=== PATIENT | male | born 1935 | race Caucasian/White ===

== ENCOUNTER 2022-09-02 15:17 | Inpatient (IN) | payer OTHER, BC ==
[2022-09-02 16:39] LABS: VENOUS BASE EXCESS -15.1 mmol/L (-2-2); VENOUS O2 SATURATION 20.2 % (70-80); VENOUS PCO2 50.7 mmHg (38-52)
[2022-09-02 16:40] LABS: VENOUS PH 7.086 (7.310-7.410)
[2022-09-02 16:45] LABS: BASO % 0.5 % (0-2.0); EOS % 3.3 % (0-4.5); HEMATOCRIT 43.6 % (35.4-49); HEMOGLOBIN 14.3 GM/dL (11.7-16.9); LYMPH % 16.8 % (8-40); MCH 31.6 pg (25.7-33.7); MCHC 32.8 g/dl (32.0-35.9); MEAN CELL VOLUME 96.3 fl (80-96); MONO % 17.8 % (3.8-10.2); NEUT % 61.6 % (42.8-82.8); PLATELET COUNT 203 10^3/uL (134-434); RBC 4.53 M/mm3 (4.00-5.60); RDW 14.2 % (11.9-15.9); WHITE BLOOD COUNT 7.9 K/mm3 (4.0-10.0)
[2022-09-02 16:55] LABS: INR 1.08 (0.83-1.09); PROTHROMBIN TIME (PATIENT) 12.5 SEC (9.7-13.0)
[2022-09-02 17:06] LABS: CALCIUM 8.9 mg/dL (8.5-10.1)
[2022-09-02 17:07] LABS: BLOOD UREA NITROGEN 90.8 mg/dL (7-18)
[2022-09-02 17:10] LABS: CREATININE 4.6 mg/dL (0.55-1.3)
[2022-09-02 17:12] LABS: BILIRUBIN,TOTAL 0.5 mg/dL (0.2-1); TOT PROT 7.2 g/dl (6.4-8.2)
[2022-09-02] MEDS ORDERED: SODIUM CHLORIDE 0.9% 500 ML INFUS.BAG IV ONE ×2 (17:21→18:21)
[2022-09-02 17:51] LABS: ANISOCYTOSIS 0; MACROCYTOSIS 0
[2022-09-02] MEDS ORDERED: LACTATED RINGERS SOLUTION 1,000 ML/1,000 ML INFUS.BAG IV SCH (18:15)
[2022-09-02] MEDS ORDERED: PIPERACILLIN/TAZOB 4.5 GM 4.5 GM in DEXTROSE 5%-WATER 100 ML IVPB ONE (18:50)
[2022-09-02] MEDS ORDERED: CEFEPIME HCL/D5W 2 GM/50 ML BAG IVPB ONE (18:55)
[2022-09-02] MEDS ORDERED: PIPERACILLIN/TAZOB 4.5 GM 4.5 GM/100 ML BAG IVPB ONE (19:09)
[2022-09-02] MEDS ORDERED: CEFEPIME 2 GM/200 ML BAG IVPB ONE (20:24)
[2022-09-02 20:34] LABS: CALCIUM 7.8 mg/dL (8.5-10.1)
[2022-09-02 20:35] LABS: BLOOD UREA NITROGEN 85.8 mg/dL (7-18)
[2022-09-02 20:38] LABS: CREATININE 4.1 mg/dL (0.55-1.3)
[2022-09-02 20:54] LABS: VENOUS BASE EXCESS -16.4 mmol/L (-2-2); VENOUS O2 SATURATION 36.7 % (70-80)
[2022-09-02 20:55] LABS: VENOUS PH 7.133 (7.310-7.410)
[2022-09-02 21:04] LABS: URINE APPEARANCE CLEAR; URINE BILIRUBIN NEGATIVE (NEGATIVE); URINE COLOR YELLOW; URINE GLUCOSE (UA) 1+ (NEGATIVE); URINE KETONE NEGATIVE (NEGATIVE); URINE LEUK ESTERASE NEGATIVE (NEGATIVE); URINE NITRITE NEGATIVE (NEGATIVE); URINE PROTEIN TRACE (NEGATIVE); URINE UROBILINOGEN 0.2 mg/dL (0.2-1.0)
[2022-09-02] MEDS ORDERED: LIDOCAINE HCL 2% JELLY 6 ML TP ONE (21:40)
[2022-09-03] MEDS ORDERED: MELATONIN 5 MG TABLETS PO PRN (00:26)
[2022-09-03] MEDS: SODIUM CHLORIDE 1,000 ML IV SCH ×2 (00:35→01:27)
[2022-09-03 01:31] LABS: ARTERIAL BLD GAS O2 SATURATION 96.2 % (95-98); ARTERIAL BLOOD GAS BASE EXCESS -15.4 mmol/L (-2-2); ARTERIAL BLOOD GAS PO2 100.8 mmHg (80-100)
[2022-09-03 01:43] LABS: ARTERIAL BLOOD GAS pH 7.187 (7.350-7.450)
[2022-09-03] MEDS ORDERED: SODIUM BICARBONATE 8.4% 50 MEQ/50 ML VIAL IVPUSH ONE ×2 (01:50→01:52)
[2022-09-03] MEDS ORDERED: SODIUM CHLORIDE 250 ML IV STA (01:52)
[2022-09-03 03:45] LABS: BLOOD UREA NITROGEN 80.7 mg/dL (7-18); CALCIUM 8.2 mg/dL (8.5-10.1)
[2022-09-03 03:48] LABS: CREATININE 3.8 mg/dL (0.55-1.3)
[2022-09-03 03:50] LABS: TOT PROT 5.6 g/dl (6.4-8.2)
[2022-09-03 03:51] LABS: BILIRUBIN,TOTAL 0.6 mg/dL (0.2-1)
[2022-09-03 04:15] LABS: ALBUMIN 3.1 g/dl (3.4-5.0)
[2022-09-03] MEDS: HEPARIN NA (PORCINE) 5,000 UNITS/ML 1ML VIAL SQ SCH ×3 (06:08→21:52)
[2022-09-03] MEDS: INSULIN SLIDING SCALE (NOVOLOG) 1 VIAL SQ SCH ×4 (06:08→21:01)
[2022-09-03 06:34] LABS: ARTERIAL BLD GAS O2 SATURATION 94.6 % (95-98); ARTERIAL BLOOD GAS BASE EXCESS -13.8 mmol/L (-2-2); ARTERIAL BLOOD GAS PO2 82.5 mmHg (80-100); ARTERIAL BLOOD GAS pH 7.242 (7.350-7.450)
[2022-09-03 07:18] LABS: HEMATOCRIT 38.9 % (35.4-49); HEMOGLOBIN 13.1 GM/dL (11.7-16.9); MCH 31.9 pg (25.7-33.7); MCHC 33.6 g/dl (32.0-35.9); MEAN CELL VOLUME 95.1 fl (80-96); MEAN PLT VOLUME 9.9 fl (7.5-11.1); PLATELET COUNT 172 10^3/uL (134-434); RBC 4.09 M/mm3 (4.00-5.60); RDW 14.3 % (11.9-15.9); WHITE BLOOD COUNT 9.8 K/mm3 (4.0-10.0)
[2022-09-03 07:18] LABS: ALLENS TEST POSITIVE
[2022-09-03 09:08] LABS: ANISOCYTOSIS 0; HELMET CELLS 0; HOWELL-JOLLY BODIES 0; MACROCYTOSIS 0; OVALOCYTE 0; ROULEAU 0; SICKELED CELLS 0; TARGET CELLS 0; TEAR DROP CELLS 0; TOXIC GRANULATION 0
[2022-09-03] MEDS ORDERED: PNEUMOC 20-VAL CONJ-DIP CRM/PF 0.5 ML SYRINGE IM ONE (10:00)
[2022-09-03] MEDS: LACTATED RINGERS SOLUTION 1,000 ML/1,000 ML INFUS.BAG IV SCH ×2 (10:03→21:59)
[2022-09-03] MEDS: CEFTRIAXONE 1 GM in DEXTROSE 5%-WATER - 50 ML IVPB SCH (10:05)
[2022-09-03 11:40] LABS: MAGNESIUM 1.9 mg/dL (1.8-2.4)
[2022-09-03 11:43] LABS: PHOSPHOROUS 3.6 mg/dL (2.5-4.9)
[2022-09-03 12:54] VITALS: BMI 28.8
[2022-09-03] MEDS: SODIUM BICARBONATE 650 MG TABLET PO SCH ×2 (14:59→21:51)
[2022-09-04] MEDS: HEPARIN NA (PORCINE) 5,000 UNITS/ML 1ML VIAL SQ SCH ×3 (05:45→21:37)
[2022-09-04] MEDS ORDERED: DEXTROSE 4 GM TAB.CHEW PO ONE (05:46)
[2022-09-04] MEDS: INSULIN SLIDING SCALE (NOVOLOG) 1 VIAL SQ SCH ×4 (06:11→21:37)
[2022-09-04] MEDS: LACTATED RINGERS SOLUTION 1,000 ML/1,000 ML INFUS.BAG IV SCH ×2 (06:29→09:08)
[2022-09-04 08:15] LABS: HEMATOCRIT 36.9 % (35.4-49); HEMOGLOBIN 12.2 GM/dL (11.7-16.9); MCH 31.1 pg (25.7-33.7); PLATELET COUNT 175 10^3/uL (134-434); RBC 3.93 M/mm3 (4.00-5.60); RDW 14.1 % (11.9-15.9); WHITE BLOOD COUNT 10.3 K/mm3 (4.0-10.0)
[2022-09-04 08:41] LABS: CALCIUM 8.1 mg/dL (8.5-10.1)
[2022-09-04 08:43] LABS: PHOSPHOROUS 2.7 mg/dL (2.5-4.9)
[2022-09-04 08:44] LABS: CREATININE 2.5 mg/dL (0.55-1.3)
[2022-09-04 08:45] LABS: BILIRUBIN,TOTAL 0.6 mg/dL (0.2-1); TOT PROT 5.5 g/dl (6.4-8.2)
[2022-09-04] MEDS: CEFTRIAXONE 1 GM in DEXTROSE 5%-WATER - 50 ML IVPB SCH (09:11)
[2022-09-04] MEDS: SODIUM BICARBONATE 650 MG TABLET PO SCH (09:11)
[2022-09-04] MEDS: GABAPENTIN 300 MG CAPSULE PO SCH ×2 (09:12→21:37)
[2022-09-04 09:14] LABS: BLOOD UREA NITROGEN 55.5 mg/dL (7-18)
[2022-09-04] MEDS ORDERED: TAMSULOSIN HCL 0.4 MG CAP PO SCH (10:00)
[2022-09-04 10:02] LABS: ANISOCYTOSIS 0; MACROCYTOSIS 0
[2022-09-04] MEDS: SOLIFENACIN SUCCINATE 5 MG TAB PO SCH (10:13)
[2022-09-04] MEDS ORDERED: DEXTROSE 5%-LACTATED RINGERS 1,000 ML IV SCH (11:45)
[2022-09-04] MEDS ORDERED: DEXTROSE 5%-WATER - 1,000 ML with SODIUM BICARBONATE 8.4% - 100 MEQ IV SCH (13:00)
[2022-09-04] MEDS: BANATROL PLUS POWDER PACKET PO SCH ×2 (13:33→21:37)
[2022-09-04] MEDS ORDERED: BANATROL PLUS POWDER PACKET PO SCH (14:00)
[2022-09-04] MEDS ORDERED: NEBIVOLOL 5 MG TABLET (FP) PO SCH (16:15)
[2022-09-04] MEDS: SODIUM BICARBONATE 8.4% - 100 MEQ in DEXTROSE 5%-WATER - 1,000 ML IV SCH (17:14)
[2022-09-05] MEDS: HEPARIN NA (PORCINE) 5,000 UNITS/ML 1ML VIAL SQ SCH ×3 (05:53→21:07)
[2022-09-05] MEDS: BANATROL PLUS POWDER PACKET PO SCH ×3 (05:53→21:07)
[2022-09-05] MEDS: SODIUM BICARBONATE 8.4% - 100 MEQ in DEXTROSE 5%-WATER - 1,000 ML IV SCH (05:53)
[2022-09-05] MEDS: INSULIN SLIDING SCALE (NOVOLOG) 1 VIAL SQ SCH ×4 (06:01→21:15)
[2022-09-05] MEDS: TAMSULOSIN HCL 0.4 MG CAP PO SCH (08:07)
[2022-09-05] MEDS: CEFTRIAXONE 1 GM in DEXTROSE 5%-WATER - 50 ML IVPB SCH (09:35)
[2022-09-05] MEDS: NEBIVOLOL 5 MG TABLET (FP) PO SCH (09:36)
[2022-09-05] MEDS: GABAPENTIN 300 MG CAPSULE PO SCH ×2 (09:36→21:07)
[2022-09-05] MEDS: SOLIFENACIN SUCCINATE 5 MG TAB PO SCH (09:36)
[2022-09-05 10:01] LABS: HEMATOCRIT 33.3 % (35.4-49); HEMOGLOBIN 11.4 GM/dL (11.7-16.9); MCH 31.8 pg (25.7-33.7); MCHC 34.3 g/dl (32.0-35.9); MEAN CELL VOLUME 92.6 fl (80-96); MEAN PLT VOLUME 10.4 fl (7.5-11.1); PLATELET COUNT 178 10^3/uL (134-434); RDW 14.1 % (11.9-15.9); WHITE BLOOD COUNT 10.6 K/mm3 (4.0-10.0)
[2022-09-05 10:21] LABS: CALCIUM 7.9 mg/dL (8.5-10.1)
[2022-09-05 10:22] LABS: ALBUMIN 2.8 g/dl (3.4-5.0); MAGNESIUM 1.8 mg/dL (1.8-2.4)
[2022-09-05 10:25] LABS: CREATININE 1.9 mg/dL (0.55-1.3); PHOSPHOROUS 2.5 mg/dL (2.5-4.9)
[2022-09-05 10:27] LABS: BILIRUBIN,TOTAL 0.6 mg/dL (0.2-1); TOT PROT 5.2 g/dl (6.4-8.2)
[2022-09-05] MEDS ORDERED: POTASSIUM CHLORIDE ORAL LIQUID 20 MEQ/15 ML PO ONE (10:28)
[2022-09-05] MEDS: SODIUM CHLORIDE 0.45%/POT 20 MEQ/1,000 ML INFUS.BAG IV SCH (11:43)
[2022-09-06] MEDS: SODIUM CHLORIDE 0.45%/POT 20 MEQ/1,000 ML INFUS.BAG IV SCH ×2 (01:07→11:44)
[2022-09-06] MEDS: BANATROL PLUS POWDER PACKET PO SCH ×3 (05:41→21:50)
[2022-09-06] MEDS: HEPARIN NA (PORCINE) 5,000 UNITS/ML 1ML VIAL SQ SCH ×3 (05:41→21:51)
[2022-09-06] MEDS: INSULIN SLIDING SCALE (NOVOLOG) 1 VIAL SQ SCH ×4 (06:09→21:51)
[2022-09-06] MEDS: SOLIFENACIN SUCCINATE 5 MG TAB PO SCH (09:19)
[2022-09-06] MEDS: TAMSULOSIN HCL 0.4 MG CAP PO SCH (09:19)
[2022-09-06] MEDS: CEFTRIAXONE 1 GM in DEXTROSE 5%-WATER - 50 ML IVPB SCH (09:19)
[2022-09-06] MEDS: NEBIVOLOL 5 MG TABLET (FP) PO SCH (09:19)
[2022-09-06] MEDS: GABAPENTIN 300 MG CAPSULE PO SCH ×2 (09:19→21:51)
[2022-09-06 09:28] LABS: BASO % 0.5 % (0-2.0); HEMATOCRIT 35.8 % (35.4-49); HEMOGLOBIN 12.2 GM/dL (11.7-16.9); MCH 31.7 pg (25.7-33.7); MCHC 34.1 g/dl (32.0-35.9); MEAN CELL VOLUME 92.8 fl (80-96); MEAN PLT VOLUME 9.9 fl (7.5-11.1); MONO % 12.8 % (3.8-10.2); NEUT % 54.7 % (42.8-82.8); PLATELET COUNT 187 10^3/uL (134-434); RBC 3.86 M/mm3 (4.00-5.60); WHITE BLOOD COUNT 10.8 K/mm3 (4.0-10.0)
[2022-09-06 10:00] LABS: CALCIUM 8.3 mg/dL (8.5-10.1)
[2022-09-06 10:01] LABS: BLOOD UREA NITROGEN 31.4 mg/dL (7-18)
[2022-09-06 10:04] LABS: CREATININE 1.7 mg/dL (0.55-1.3)
[2022-09-06] MEDS: metroNIDAZOLE 250 MG TABLET PO SCH (21:50)
[2022-09-07] MEDS: HEPARIN NA (PORCINE) 5,000 UNITS/ML 1ML VIAL SQ SCH (05:40)
[2022-09-07] MEDS: BANATROL PLUS POWDER PACKET PO SCH (05:40)
[2022-09-07] MEDS: metroNIDAZOLE 250 MG TABLET PO SCH (05:41)
[2022-09-07] MEDS: INSULIN SLIDING SCALE (NOVOLOG) 1 VIAL SQ SCH (06:06)
[2022-09-07] MEDS: TAMSULOSIN HCL 0.4 MG CAP PO SCH (08:00)
[2022-09-07] MEDS: NEBIVOLOL 5 MG TABLET (FP) PO SCH (10:16)
[2022-09-07] MEDS: SOLIFENACIN SUCCINATE 5 MG TAB PO SCH (10:16)
[2022-09-07] MEDS: GABAPENTIN 300 MG CAPSULE PO SCH (10:17)
[2022-09-07] MEDS: CEFTRIAXONE 1 GM in DEXTROSE 5%-WATER - 50 ML IVPB SCH (10:17)
[2022-09-07 11:12] VITALS: BP 125/68; PULSE 55; RESP 20; TEMP 98.3
== END 2022-09-07 11:15 | disposition home or self-care (01) | DRG 640 ==
LOC: JER 15:17 → JERBED 21:45 → J4S 09-03 01:42
PROVIDERS: ADMIT Internal Medicine; ATTEND Internal Medicine
DX: E86.1 Hypovolemia (principal); N17.0 Acute kidney failure with tubular necrosis; I47.20 Ventricular tachycardia, unspecified; I95.9 Hypotension, unspecified; E87.20 Acidosis, unspecified; K52.9 Noninfective gastroenteritis and colitis, unspecified; E11.649 Type 2 diabetes mellitus with hypoglycemia without coma; N40.0 Benign prostatic hyperplasia without lower urinary tract symptoms; R19.7 Diarrhea, unspecified; E86.0 Dehydration; E87.0 Hyperosmolality and hypernatremia; I10 Essential (primary) hypertension; E78.5 Hyperlipidemia, unspecified; E66.9 Obesity, unspecified; Z68.28 Body mass index [BMI] 28.0-28.9, adult
CPT/HCPCS: 0241U-QW; 36415; 36600; 71275-TC; 74174-TC; 76775-TC; 80048; 80053; 81003; 82436; 82550; 82553; 82570; 82803; 82962; 83036; 83605; 83735; 83935; 84100; 84133; 84300; 84443; 84484; 85025; 85027; 85610; 85730; 86850; 86900; 86901; 87040; 87045; 87046; 87086; 87209; 87324; 87449; 87493; 87798; 90677; 93005; 93010; 99285-25; J1644; J3480; Q9967

== ENCOUNTER 2022-09-19 13:16 | Observation (INO) | payer OTHER, BC ==
[2022-09-19 13:28] VITALS: BMI 27.9
[2022-09-19 14:44] LABS: BASO % 0.7 % (0-2.0); EOS % 3.4 % (0-4.5); HEMATOCRIT 37.6 % (35.4-49); HEMOGLOBIN 12.6 GM/dL (11.7-16.9); MCH 31.2 pg (25.7-33.7); MCHC 33.4 g/dl (32.0-35.9); MEAN CELL VOLUME 93.3 fl (80-96); MEAN PLT VOLUME 9.9 fl (7.5-11.1); MONO % 6.9 % (3.8-10.2); PLATELET COUNT 280 10^3/uL (134-434); RBC 4.03 M/mm3 (4.00-5.60); RDW 13.8 % (11.9-15.9); WHITE BLOOD COUNT 6.8 K/mm3 (4.0-10.0)
[2022-09-19 14:50] LABS: INR 1.08 (0.83-1.09); PROTHROMBIN TIME (PATIENT) 12.5 SEC (9.7-13.0)
[2022-09-19 14:52] LABS: ACTIVATED PTT 31.3 SECONDS (25.2-36.5)
[2022-09-19 15:26] LABS: CALCIUM 8.6 mg/dL (8.5-10.1)
[2022-09-19 15:27] LABS: ALBUMIN 3.6 g/dl (3.4-5.0); BLOOD UREA NITROGEN 36.8 mg/dL (7-18)
[2022-09-19 15:30] LABS: CREATININE 1.7 mg/dL (0.55-1.3)
[2022-09-19 15:31] LABS: BILIRUBIN,TOTAL 0.5 mg/dL (0.2-1); TOT PROT 6.8 g/dl (6.4-8.2)
[2022-09-19 17:49] LABS: PH,URINE 6.5 (5.0-8.0); URINE APPEARANCE CLEAR; URINE BILIRUBIN NEGATIVE (NEGATIVE); URINE COLOR YELLOW; URINE GLUCOSE (UA) 3+ (NEGATIVE); URINE KETONE NEGATIVE (NEGATIVE); URINE LEUK ESTERASE NEGATIVE (NEGATIVE); URINE NITRITE NEGATIVE (NEGATIVE); URINE PROTEIN NEGATIVE (NEGATIVE)
[2022-09-19] MEDS ORDERED: SODIUM CHLORIDE 1,000 ML IV SCH (20:30)
[2022-09-19] MEDS ORDERED: HEPARIN NA (PORCINE) 5,000 UNITS/ML 1ML VIAL SQ SCH (22:00)
[2022-09-20] MEDS ORDERED: MECLIZINE HCL 25 MG TABLET (FP) PO PRN (00:38)
[2022-09-20 07:04] LABS: BASO % 0.6 % (0-2.0); EOS % 7.2 % (0-4.5); HEMATOCRIT 36.8 % (35.4-49); HEMOGLOBIN 12.1 GM/dL (11.7-16.9); MCH 30.9 pg (25.7-33.7); MCHC 32.8 g/dl (32.0-35.9); MEAN PLT VOLUME 9.9 fl (7.5-11.1); MONO % 9.1 % (3.8-10.2); NEUT % 55.1 % (42.8-82.8); PLATELET COUNT 266 10^3/uL (134-434); RBC 3.92 M/mm3 (4.00-5.60); RDW 13.9 % (11.9-15.9); WHITE BLOOD COUNT 6.3 K/mm3 (4.0-10.0)
[2022-09-20 07:20] VITALS: RESP 18
[2022-09-20 07:23] LABS: ALBUMIN 3.3 g/dl (3.4-5.0); CALCIUM 8.7 mg/dL (8.5-10.1); MAGNESIUM 2.3 mg/dL (1.8-2.4)
[2022-09-20 07:24] LABS: BLOOD UREA NITROGEN 29.3 mg/dL (7-18)
[2022-09-20 07:26] LABS: CREATININE 1.3 mg/dL (0.55-1.3)
[2022-09-20 07:27] LABS: PHOSPHOROUS 3.6 mg/dL (2.5-4.9)
[2022-09-20 07:28] LABS: TOT PROT 6.2 g/dl (6.4-8.2)
[2022-09-20 07:29] LABS: BILIRUBIN,TOTAL 0.5 mg/dL (0.2-1)
[2022-09-20] MEDS: INSULIN SLIDING SCALE (NOVOLOG) 1 VIAL SQ SCH ×2 (07:35→12:55)
[2022-09-20] MEDS ORDERED: TAMSULOSIN HCL 0.4 MG CAP PO SCH (08:30)
[2022-09-20] MEDS ORDERED: SOLIFENACIN SUCCINATE 5 MG TAB PO SCH (10:00)
[2022-09-20] MEDS ORDERED: GABAPENTIN 300 MG CAPSULE PO SCH (10:00)
[2022-09-20] MEDS ORDERED: ASPIRIN COATED 81 MG TABLET.EC PO SCH (10:00)
[2022-09-20] MEDS ORDERED: ASPIRIN COATED 81 MG TABLET.EC ONE (12:49)
[2022-09-20] MEDS ORDERED: GABAPENTIN 300 MG CAPSULE ONE (12:49)
[2022-09-20 18:54] VITALS: BP 144/76; PULSE 55; TEMP 98.4
[2022-09-20] MEDS ORDERED: ROSUVASTATIN CA 5 MG TABLET PO SCH (22:00)
== END 2022-09-20 18:50 | disposition home or self-care (01) ==
LOC: JER 13:16 → JERBED 17:53
PROVIDERS: ADMIT Internal Medicine
DX: I10 Essential (primary) hypertension (principal); E78.5 Hyperlipidemia, unspecified; K52.9 Noninfective gastroenteritis and colitis, unspecified; E11.9 Type 2 diabetes mellitus without complications; K90.0 Celiac disease; N40.0 Benign prostatic hyperplasia without lower urinary tract symptoms; R07.9 Chest pain, unspecified
CPT/HCPCS: 36415; 71046-TC-FY; 80053; 80061; 81003; 82550; 83735; 84100; 84439; 84443; 84484; 85025; 85610; 85730; 87086; 93005; 93010; 93306-TC; 99285-25; C9803-CS; G0378; U0003; U0005